=== PATIENT | female | born 1990 | race Caucasian/White ===

== ENCOUNTER → 2016-09-12 | Outpatient (CLI) | payer OTHER ==
[2016-09-12 14:12] LABS: BASO % 0.4 % (0.0-1.0); EOS # 0.1 K/mm3 (0.0-0.50); EOS % 1.6 % (0.0-3.0); LARGE UNSTAINED CELL # 0.1 K/mm3 (0.0-0.4); LARGE UNSTAINED CELL % 1.5 % (0.0-4.0); LYMPH # 1.7 K/mm3 (1.5-6.5); LYMPH % 19.9 % (24.0-44.0); MEAN CORPUSCULAR HEMOGLOBIN 27.2 pg (27.0-33.0); MEAN CORPUSCULAR HGB CONC 33.5 g/dl (32.0-36.5); MEAN CORPUSCULAR VOLUME 81.3 fl (80.0-96.0); MONO # 0.4 K/mm3 (0.0-0.8); MONO % 4.3 % (0.0-5.0); NEUTROPHILS # 6.1 K/mm3 (1.8-7.7); NEUTROPHILS % 72.3 % (36.0-66.0); PLATELET COUNT, AUTOMATED 276 k/mm3 (150-450); RED CELL DISTRIBUTION WIDTH 12.8 % (11.5-14.5); WHITE BLOOD COUNT 8.4 K/mm3 (4.0-10.0)
[2016-09-12 14:55] LABS: PERCENT SATURATION 21.6 % (13.2-37.4); TOTAL IRON BINDING CAPACITY 505 UG/DL (250-450)
== END ==
LOC: M LAB 13:36
PROVIDERS: ATTEND Nurse Practitioner Pediatrics
DX: K58.0 Irritable bowel syndrome with diarrhea (principal); F42.2 Mixed obsessional thoughts and acts; E56.9 Vitamin deficiency, unspecified; E03.8 Other specified hypothyroidism

== ENCOUNTER → 2017-09-29 | Outpatient (CLI) | payer OTHER ==
[2017-09-29 10:58] LABS: FREE T4 0.99 NG/DL (0.76-1.46)
== END ==
LOC: M LAB 09:15
DX: E06.3 Autoimmune thyroiditis (principal); E66.01 Morbid (severe) obesity due to excess calories
CPT/HCPCS: 84443

== ENCOUNTER 2018-09-20 12:31 | Emergency (ER) | payer OTHER ==
[~2018-09-20] VITALS: Ht 160 cm; Wt 113.6 kg
[2018-09-20] MEDS ORDERED: MUCI600T37 PO (13:26)
[2018-09-20] MEDS ORDERED: FLON1SPR NARES (13:26)
[2018-09-20] MEDS ORDERED: AUGM875T28 PO (13:26)
[2018-09-20] MEDS ORDERED: AUGMENTIN 875 MG TAB PO ONE (13:45)
[2018-09-20] MEDS ORDERED: NORCO, ANEXSIA 5/325MG TABLET (HYDROcodone/ACETAMINOPHEN) PO ONE (14:15)
[2018-09-20 14:32] VITALS: BP 168/94
== END 2018-09-20 14:41 | disposition home or self-care (01) ==
LOC: M ED 12:31
DX: H66.003 Acute suppurative otitis media without spontaneous rupture of ear drum, bilateral (principal); J31.0 Chronic rhinitis

== ENCOUNTER → 2018-11-02 | Outpatient (CLI) | payer OTHER ==
[~2018-11-02] MED LIST: AUGM875T28 PO; FLON1SPR NARES; MUCI600T37 PO
--- NOTE | 2018-11-03 02:46 | REP ---
Clinical: Right shoulder pain . Technique: Internal rotation, external rotation, and Y view. Findings: No acute fracture or dislocation. The acromioclavicular and glenohumeral joints are intact. No periarticular calcifications or degenerative changes are appreciated. Sub acromial space is normal. Surrounding soft tissues are unremarkable. Impression: Normal age-appropriate right shoulder radiographs. Electronically Signed by Bryson Humphries MD 11/03/2018 02:36 A
== END ==
LOC: M RAD 10:14
PROVIDERS: ATTEND Physician Assistant
DX: M25.511 Pain in right shoulder (principal)

== ENCOUNTER → 2019-01-27 | Outpatient (CLI) | payer OTHER, SELFPAY ==
--- NOTE | 2019-01-27 18:44 | REP ---
Clinical: Elevated liver function tests. Technique: Real time agrawal scale ultrasound examination using curved array transducer. Findings: Liver is enlarged and increased echotexture consistent with hepatomegaly and fatty infiltration. No focal hepatic lesion identified. Liver measures approximately 22.2 cm craniocaudal length. Gallbladder is normal and without gallstones, wall thickening, or pericholecystic fluid. No biliary ductal dilatation is appreciated and the common bile duct measures 4.1 mm diameter. Pancreas is incompletely evaluated due to interposed bowel gas but visualized portions appear normal. Right kidney is normal in reniform shape and echogenicity without hydronephrosis and measures 11.3 x 6.9 x 5.6 cm. No free fluid. Impression: 1. Hepatomegaly and hepatic steatosis. No focal hepatic lesion identified. Electronically Signed by Bryson Humphries MD 01/27/2019 06:36 P
== END ==
LOC: M RAD 08:51
PROVIDERS: ATTEND Physician Assistant
DX: R94.5 Abnormal results of liver function studies (principal); K75.81 Nonalcoholic steatohepatitis (NASH); R16.0 Hepatomegaly, not elsewhere classified

== ENCOUNTER → 2019-11-02 | Outpatient (REF) | payer OTHER, MEDICAID ==
[2019-11-02 13:45] LABS: BASO # 0.1 10^3/uL (0.0-0.2); BASO % 0.8 % (0.0-1.0); EOS # 0.2 10^3/uL (0.0-0.5); EOS % 1.8 % (0.0-3.0); HEMATOCRIT 39.1 % (36.0-47.0); HEMOGLOBIN 12.9 g/dl (12.0-15.5); LYMPH # 1.9 10^3/uL (1.5-5.0); LYMPH % 22.3 % (24.0-44.0); MEAN CORPUSCULAR HEMOGLOBIN 27.9 pg (27.0-33.0); MEAN CORPUSCULAR VOLUME 84.4 fl (80.0-96.0); MONO # 0.4 10^3/uL (0.0-0.8); MONO % 5.2 % (0.0-5.0); NEUTROPHILS # 5.8 10^3/uL (1.5-8.5); NEUTROPHILS % 69.2 % (36.0-66.0); PLATELET COUNT, AUTOMATED 333 10^3/uL (150-450); RED BLOOD COUNT 4.63 10^6/uL (4.00-5.40); WHITE BLOOD COUNT 8.4 10^3/uL (4.0-10.0)
[2019-11-02 13:48] LABS: ALT/SGPT 189 U/L (12-78); BILIRUBIN,TOTAL 0.3 MG/DL (0.2-1.0); BLOOD UREA NITROGEN 13 MG/DL (7-18); C REACTIVE PROTEIN QUANTITATIV 1.31 MG/DL (0.00-0.30); CALCIUM LEVEL 9.3 MG/DL (8.5-10.1); CARBON DIOXIDE LEVEL 25 MEQ/L (21-32); CHLORIDE LEVEL 103 MEQ/L (98-107); CREATININE FOR GFR 0.78 MG/DL (0.55-1.30); GLOMERULAR FILTRATION RATE > 60.0 (>60); GLUCOSE, FASTING 120 MG/DL (70-100); POTASSIUM SERUM 4.2 MEQ/L (3.5-5.1); RHEUMATOID FACTOR QUANT < 10.0 IU/ML (<15.0); SODIUM LEVEL 135 MEQ/L (136-145)
[2019-11-02 14:26] LABS: ERYTHROCYTE SEDIMENTATION RATE 46 mm/hr (0-20)
[2019-11-02 17:26] LABS: ALBUMIN 3.8 GM/DL (3.2-5.2); TOTAL PROTEIN 7.6 GM/DL (6.4-8.2)
== END ==
LOC: M SFHCRHEU 11:00
PROVIDERS: ATTEND Internal Medicine
DX: M25.50 Pain in unspecified joint (principal); R94.5 Abnormal results of liver function studies; E06.3 Autoimmune thyroiditis; E55.9 Vitamin D deficiency, unspecified; K90.0 Celiac disease

== ENCOUNTER → 2019-12-30 | Outpatient (CLI) | payer OTHER ==
--- NOTE | 2019-12-30 17:55 | REP ---
Clinical: Polyarthralgia . Technique: AP, lateral, bilateral oblique, and coned-down views. Findings: Alignment and lordosis is maintained. The vertebral bodies including transverse process and spinous processes are intact and normal. There is no evidence for acute fracture / compression injury or subluxation. No evidence for spondylolysis or spondylolisthesis. No significant degenerative change is noted. Impression: Normal lumbosacral spine radiograph series. Electronically Signed by Bryson Humphries MD 12/30/2019 05:47 P
--- NOTE | 2019-12-30 18:02 | REP ---
Clinical: Polyarthralgia. Technique: AP, AP angled, and bilateral oblique views of the sacroiliac joints. Findings: Sacroiliac joints appear symmetric and relatively normal. No effusion. No significant periarticular sclerosis. No subluxation. Impression: Symmetric and essentially age-appropriate sacroiliac joints. Electronically Signed by Bryson Humphries MD 12/30/2019 05:55 P
== END ==
LOC: M WUC 12:36
PROVIDERS: ATTEND Internal Medicine
DX: M25.50 Pain in unspecified joint (principal)

== ENCOUNTER → 2020-01-05 | Outpatient (CLI) | payer OTHER | LOC: M LAB 16:51 | PROVIDERS: ATTEND Dermatology | DX: Z79.899 Other long term (current) drug therapy (principal) ==

== ENCOUNTER → 2020-01-20 | Outpatient (REF) | payer OTHER, MEDICAID ==
[2020-01-21 11:33] LABS: HEPATITIS B SURFACE ANTIGEN NEGATIVE (NEGATIVE)
== END ==
LOC: M SFHCRHEU 10:29
PROVIDERS: ATTEND Internal Medicine
DX: R79.89 Other specified abnormal findings of blood chemistry (principal)

== ENCOUNTER → 2020-02-23 | Outpatient (CLI) | payer OTHER ==
[2020-02-23 13:20] LABS: BASO # 0.1 10^3/uL (0.0-0.2); BASO % 0.7 % (0.0-1.0); EOS # 0.1 10^3/uL (0.0-0.5); EOS % 1.1 % (0.0-3.0); HEMATOCRIT 40.1 % (36.0-47.0); HEMOGLOBIN 13.1 g/dl (12.0-15.5); LYMPH # 2.8 10^3/uL (1.5-5.0); LYMPH % 27.1 % (24.0-44.0); MEAN CORPUSCULAR HEMOGLOBIN 28.1 pg (27.0-33.0); MEAN CORPUSCULAR HGB CONC 32.7 g/dl (32.0-36.5); MEAN CORPUSCULAR VOLUME 85.9 fl (80.0-96.0); MONO # 0.6 10^3/uL (0.0-0.8); NEUTROPHILS # 6.6 10^3/uL (1.5-8.5); NEUTROPHILS % 64.1 % (36.0-66.0); PLATELET COUNT, AUTOMATED 308 10^3/uL (150-450); RED BLOOD COUNT 4.67 10^6/uL (4.00-5.40); WHITE BLOOD COUNT 10.3 10^3/uL (4.0-10.0)
[2020-02-23 13:31] LABS: INR 1.05; PROTHROMBIN TIME 13.4 SECONDS (11.8-14.0)
[2020-02-23 13:44] LABS: ALBUMIN 4.2 GM/DL (3.2-5.2); ALT/SGPT 142 U/L (12-78); BILIRUBIN,DIRECT 0.1 MG/DL (0.0-0.2); BILIRUBIN,TOTAL 0.4 MG/DL (0.2-1.0); IRON (FE) 90 UG/DL (50-170); PERCENT SATURATION 21.5 % (13.2-45.0); TOTAL IRON BINDING CAPACITY 418 UG/DL (250-450); TOTAL PROTEIN 7.9 GM/DL (6.4-8.2)
[2020-02-23 14:17] LABS: HEPATITIS B SURFACE ANTIGEN NEGATIVE (NEGATIVE)
[2020-02-23 14:31] LABS: HEPATITIS C VIRUS ABY INDEX 0.1 INDEX (<0.8)
[2020-02-23 14:32] LABS: HEPATITIS B CORE ANTIBODY IGM NEGATIVE (NEGATIVE)
[2020-02-23 14:34] LABS: HEPATITIS A ANTIBODY IGM NEGATIVE (NEGATIVE)
[2020-02-28 16:08] LABS: ANCA-ATYPICAL <1:20 titer (Neg:<1:20); ANTI-MITOCHONDRIAL ANTIBODY <20.0 Units (0.0-20.0); ANTINUCLEAR ANTIBODIES DIRECT Negative (Negative); CERULOPLASMIN 26.6 mg/dL (19.0-39.0); CYTOPLASMIC NEUTROP AB ANCA-C <1:20 titer (Neg:<1:20); LIVER-KIDNEY MICROSOMAL ABY <20.1 Units (0.0-20.0); PERINUCLEAR AB ANCA-P <1:20 titer (Neg:<1:20); TISSUE TRANSGLUTAMINASE IgA <2 U/mL (0-3)
== END ==
LOC: M LAB 12:14
PROVIDERS: ATTEND Internal Medicine Gastroenterology
DX: K62.5 Hemorrhage of anus and rectum (principal); R94.5 Abnormal results of liver function studies

== ENCOUNTER → 2020-06-01 | Outpatient (CLI) | payer OTHER ==
[~2020-06-01] MED LIST changes: +ATOR1TAB21 PO; +CETI10CH PO; +FLON1SPR; +FLUO10CA16 PO; +HUMI40KI SC; +LEVO88TA3 PO; +LISI10TA15 PO; +METF850T4 PO; +MOME0.1O EX; +OMEP1CAP73 PO; +SM M250T PO; +SPIR50TA4 PO; +TRAZ-252 PO; +VITA50005 PO
== END ==
LOC: M LABSMTC 11:28
PROVIDERS: ATTEND Anesthesiology
DX: Z01.812 Encounter for preprocedural laboratory examination (principal); Z20.828 Contact with and (suspected) exposure to other viral communicable diseases
CPT/HCPCS: C9803; U0003

== ENCOUNTER 2020-06-06 10:13 | Day surgery (SDC) | payer OTHER ==
[~2020-06-06] VITALS: Ht 160 cm; Wt 111.1 kg
[~2020-06-06 10:13] MED LIST changes: +NS 1,000 ML IV ONE
[2020-06-06] MEDS ORDERED: LIDOCAINE 2% 100MG/5ML SDV (FOR ANES.) As Ordered ONE (11:01)
[2020-06-06] MEDS ORDERED: propofoL 200 MG/20 ML VIAL As Ordered ONE ×2 (11:01→12:58)
[2020-06-06] MEDS ORDERED: fentaNYL 100 MCG/2 ML INJECTION (J3010) As Ordered ONE (11:04)
--- NOTE | 2020-06-06 12:31 | ROOR ---
Patient Name: Romina Zurita Procedure Date: 06/06/2020 12:11 PM Date of : 1990 Age: 30 Room: [facility] Gender: Female Note Status: Finalized Procedure: Upper GI endoscopy Indications: Heartburn, Endoscopy to assess diarrhea in patient suspected of having disease of the small-bowel Providers: Nic MURDOCK MD Referring MD: ABNER CELESTIN DO Requesting Provider: Medicines: Monitored Anesthesia Care Complications: No immediate complications. Procedure: Pre-Anesthesia Assessment: - The heart rate, respiratory rate, oxygen saturations, blood pressure, adequacy of pulmonary ventilation, and response to care were monitored throughout the procedure. The Endoscope was introduced through the mouth, and advanced to the third part of duodenum. The upper GI endoscopy was accomplished without difficulty. The patient tolerated the procedure well. Findings: The esophagus was normal. The stomach was normal. The examined duodenum was normal. Biopsies for histology were taken with a cold forceps in the second portion of the duodenum and in the third portion of the duodenum for evaluation of celiac disease. Impression: - Normal esophagus. - Normal stomach. - Normal examined duodenum. - Biopsies were taken with a cold forceps for evaluation of celiac disease. Recommendation: - Await pathology results. - Observe patient's clinical course. Nic Murdock MD Nic MURDOCK MD 06/06/2020 12:31:23 PM Electronically signed by Nic MURDOCK MD Number of Addenda: 0 Note Initiated On: 06/06/2020 12:11 PM Estimated Blood Loss: Estimated blood loss: none.
--- NOTE | 2020-06-06 13:18 | ROOR ---
Patient Name: Romina Zurita Procedure Date: 06/06/2020 12:12 PM Date of : 1990 Age: 30 Room: [facility] Gender: Female Note Status: Finalized Procedure: Colonoscopy Indications: Hematochezia Providers: Nic MURDOCK MD Referring MD: ABNER CELESTIN DO Requesting Provider: Medicines: Monitored Anesthesia Care Complications: No immediate complications. Procedure: Pre-Anesthesia Assessment: - The heart rate, respiratory rate, oxygen saturations, blood pressure, adequacy of pulmonary ventilation, and response to care were monitored throughout the procedure. The Colonoscope was introduced through the anus and advanced to 10 cm into the ileum. The colonoscopy was performed without difficulty. The patient tolerated the procedure well. The quality of the bowel preparation was good. Findings: The perianal and digital rectal examinations were normal. A 20 mm polypoid lesion was found in the mid ascending colon. The lesion was semi-pedunculated. The polyp was removed with a hot snare. Polyp resection was incomplete, and the resected tissue was partially retrieved. At the time of removal, adipose tissue becomes visible and this lesion likely represents an atypical appearing lipoma. I biopsied this to confirm-samples also placed in saline. To prevent bleeding after the polypectomy, three hemostatic clips were successfully placed (MR conditional). There was no bleeding at the end of the procedure. A 15 mm polyp was found in the mid sigmoid colon. The polyp was pedunculated. An endoloop was maneuvered over the polyp stalk and closed at the mucosal attachment prior to removal in order to prevent bleeding. The polyp was removed with a hot snare. Resection was complete, and retrieval was complete. A 4 mm polyp was found in the rectum. The polyp was sessile. The polyp was removed with a cold snare. Resection and retrieval were complete. Small Internal Hemorrhoids. The exam was otherwise without abnormality on direct and retroflexion views. Impression: - Benign polypoid lesion (likely a submucoasal lipoma) in the mid ascending colon. Tissue was partially removed and biopsied (saline). Clips (MR conditional) were placed. - One 15 mm polyp in the mid sigmoid colon, removed with a hot snare. Resected and retrieved. - One 4 mm polyp in the rectum, removed with a cold snare. Resected and retrieved. - Small Internal Hemorrhoids. - The examination was otherwise normal on direct and retroflexion views. Recommendation: - Telephone endoscopist for pathology results in 2 weeks. Nic Murdock MD Nic MURDOCK MD 06/06/2020 1:17:50 PM Electronically signed by Nic MURDOCK MD Number of Addenda: 0 Note Initiated On: 06/06/2020 12:12 PM Estimated Blood Loss: Estimated blood loss: none.
[2020-06-06 13:33] VITALS: BP 117/51
== END 2020-06-06 13:45 | disposition home or self-care (01) ==
LOC: M OPP 10:13
PROVIDERS: ATTEND Internal Medicine Gastroenterology
DX: K63.5 Polyp of colon (principal); K62.1 Rectal polyp; K92.1 Melena; R19.7 Diarrhea, unspecified; R12 Heartburn; E11.9 Type 2 diabetes mellitus without complications; F17.210 Nicotine dependence, cigarettes, uncomplicated; Z79.84 Long term (current) use of oral hypoglycemic drugs; Z79.899 Other long term (current) drug therapy; Z88.0 Allergy status to penicillin; Z88.5 Allergy status to narcotic agent; Z88.8 Allergy status to other drugs, medicaments and biological substances
CPT/HCPCS: 43239; 45385; 88305; J3010

== ENCOUNTER → 2020-07-10 | Outpatient (CLI) | payer OTHER ==
[~2020-07-10] MED LIST changes: +COSE1INJ SC; -NS 1,000 ML IV ONE; +OXYC1TAB23 PO
== END ==
LOC: M LABSMTC 10:33
PROVIDERS: ATTEND Anesthesiology
DX: Z20.828 Contact with and (suspected) exposure to other viral communicable diseases (principal)

== ENCOUNTER 2020-07-14 11:50 | Day surgery (SDC) | payer OTHER ==
[~2020-07-14] VITALS: Ht 160 cm; Wt 111.0 kg
[~2020-07-14 11:50] MED LIST changes: +LIDOCAINE 1% MDV 20ML VIAL SQ PRN; +LR 1,000 ML IV ONE; -OXYC1TAB23 PO
[2020-07-14 12:40] LABS: HEMATOCRIT 35.8 % (36.0-47.0); HEMOGLOBIN 11.9 g/dl (12.0-15.5); MEAN CORPUSCULAR HEMOGLOBIN 29.2 pg (27.0-33.0); MEAN CORPUSCULAR HGB CONC 33.2 g/dl (32.0-36.5); PLATELET COUNT, AUTOMATED 310 10^3/uL (150-450); RED BLOOD COUNT 4.07 10^6/uL (4.00-5.40); WHITE BLOOD COUNT 9.9 10^3/uL (4.0-10.0)
[2020-07-14] MEDS ORDERED: BUPIVACAINE HCL 0.25% 30ML VIAL As Ordered ONE (14:09)
[2020-07-14] MEDS ORDERED: LIDOCAINE 2% 100MG/5ML SDV (FOR ANES.) As Ordered ONE (14:37)
[2020-07-14] MEDS ORDERED: fentaNYL 100 MCG/2 ML INJECTION (J3010) As Ordered ONE ×2 (14:37→15:42)
[2020-07-14] MEDS ORDERED: KETOROLAC 60MG 2ML VIAL As Ordered ONE (14:37)
[2020-07-14] MEDS ORDERED: ROCURONIUM BROMIDE 50 MG/5 ML VIAL As Ordered ONE (14:37)
[2020-07-14] MEDS ORDERED: propofoL 200 MG/20 ML VIAL As Ordered ONE (14:37)
[2020-07-14] MEDS ORDERED: dexameTHASONE 4 MG/ML 1ML VIAL (J1100 PER 1MG) As Ordered ONE (14:37)
[2020-07-14] MEDS ORDERED: ONDANSETRON 4MG/2ML VIAL As Ordered ONE (14:37)
[2020-07-14] MEDS ORDERED: MIDAZOLAM INJ 2MG/2ML VIAL (J2250 PER 1MG) As Ordered ONE (14:37)
[2020-07-14] MEDS ORDERED: HYDROmorphone HCL 2 MG/ML 1ML VIAL (J1170) As Ordered ONE (14:38)
[2020-07-14] MEDS ORDERED: PHENYLephrine HCL 500 MCG/5 ML (100MCG/ML) SYRINGE (J2370) As Ordered ONE (14:45)
[2020-07-14] MEDS ORDERED: SUGAMMADEX SODIUM 500 MG/5 ML VIAL (BRIDION) As Ordered ONE (14:50)
[2020-07-14] MEDS: fentaNYL 100 MCG/2 ML INJECTION (J3010) IV PRN ×2 (15:45→15:50)
--- NOTE | 2020-07-14 15:56 | ROOPDOC ---
[facility] Report Of Operation Report of Operation DATE OF PROCEDURE: 07/14/20 PREPROCEDURE DIAGNOSES: endometriosis, pelvic pain. POSTPROCEDURE DIAGNOSES: same. PROCEDURE: Laparoscopy, lysis of adhesions. SURGEON: Kyaw Barber MD ANESTHESIA: GETA. ESTIMATED BLOOD LOSS: Approximately 20 mL. COMPLICATIONS: none. FINDINGS: Surgically absent uterus. Normal ovaries bilateral. Adhesions of small intestine to vaginal cuff. Scarring c/w prior h/o endometriosis. No active end ometriosis seen. Normal upper abdomen. PROCEDURE NOTE: The patient was taken to the operating room where General endotracheal anesthesia was induced. She was prepped and draped in a sterile fashion in the dorsal lithotomy position. A Swain catheter was placed. A sponge stick was placed in the vagina to use as a manipulator. A periumbilical incision was made with the scalpel. A Veress needle was inserted through this incision. An intra-abdominal location of the Veress needle was assessed with use of a sali ne filled syringe. A pneumoperitoneum was created. A 5 mm port was inserted using Visiport. Two 5 mm suprapubic ports were placed under direct visualization. 2 grasping instruments were used to survey the pelvis. Both ovaries were examined and noted to be normal in appearance. There were no adhesions around either ovary. There were significant adhesions of small intestine to the vaginal cuff. Adhesions were taken down combination of sharp and blunt dissection. Sharp dissection was performed using Endo Mackenzie. There was scarring in the pelvis near the vaginal cuff consistent with old endometriosis. However, no active endometriosis lesions were noted. Vaginal cuff was free of adhesions at the end of the procedure. All instruments were removed. Skin was closed with 4-0 Monocryl subcuticular sutures. Sponge, instrument and needle counts are correct. The patient was extubated and went to recovery room. KYAW BARBER MD Jul 14, 2020 15:56
[2020-07-14] MEDS ORDERED: ONDANSETRON 4MG/2ML VIAL IV PRN (16:00)
[2020-07-14] MEDS ORDERED: PERCOCET 5MG/325MG TAB PO PRN ×2 (16:00)
[2020-07-14] MEDS ORDERED: HYDROMORPHONE HCL 0.5 MG/ 0.5 ML SYRINGE (J1170 PER 1) IV PRN (16:00)
[2020-07-14] MEDS ORDERED: LR 1,000 ML IV SCH ×2 (16:00)
[2020-07-14] MEDS ORDERED: METOCLOPRAMIDE INJ 10MG/2ML VIAL (J2765 PER 1) IV PRN (16:00)
[2020-07-14 16:47] VITALS: BP 123/75
[2020-07-14] MEDS ORDERED: OXYC1TAB23 PO (17:57)
--- NOTE | 2020-07-15 15:13 | ECGEPIP ---
[facility] Test Date: 2020-07-14 Pat Name: TESS KATHLEEN Department: Room: - Gender: Female Grinding Operator: ION : 1990 Requested By: Javier Wayne Order Number: [id number] Reading MD: Ryan Werner Measurements Intervals [place] Rate: 89 P: 26 AK: 146 QRS: 38 QRSD: 85 T: 46 QT: 333 QTc: 407 Interpretive Statements SINUS RHYTHM No prior tracing in the system Electronically Signed on 07-15-2020 15:13:04 EST by Ryan Werner
== END 2020-07-14 17:25 | disposition home or self-care (01) ==
LOC: M SDC 11:50
PROVIDERS: ATTEND Specialist
DX: N80.3 Endometriosis of pelvic peritoneum (principal); K66.0 Peritoneal adhesions (postprocedural) (postinfection); E11.9 Type 2 diabetes mellitus without complications; E78.00 Pure hypercholesterolemia, unspecified; F31.9 Bipolar disorder, unspecified; K76.0 Fatty (change of) liver, not elsewhere classified; L40.52 Psoriatic arthritis mutilans; F41.9 Anxiety disorder, unspecified; F32.9 Major depressive disorder, single episode, unspecified; D64.9 Anemia, unspecified; I10 Essential (primary) hypertension; M12.9 Arthropathy, unspecified; G47.33 Obstructive sleep apnea (adult) (pediatric); K21.9 Gastro-esophageal reflux disease without esophagitis; E06.3 Autoimmune thyroiditis; K90.0 Celiac disease; R06.83 Snoring; F17.210 Nicotine dependence, cigarettes, uncomplicated; Z79.84 Long term (current) use of oral hypoglycemic drugs; Z79.890 Hormone replacement therapy; Z79.899 Other long term (current) drug therapy; Z88.1 Allergy status to other antibiotic agents; Z88.5 Allergy status to narcotic agent; Z88.8 Allergy status to other drugs, medicaments and biological substances; Z90.710 Acquired absence of both cervix and uterus; Z98.51 Tubal ligation status
CPT/HCPCS: 36415; 58660; 85027; 93005; J1100; J1170; J1885; J2250; J2370; J2405; J3010

== ENCOUNTER → 2020-09-05 | Outpatient (REF) | payer OTHER, MEDICAID ==
[~2020-09-05] MED LIST changes: -LIDOCAINE 1% MDV 20ML VIAL SQ PRN; -LR 1,000 ML IV ONE; +OXYC1TAB23 PO
[2020-09-05 11:36] LABS: BASO # 0.1 10^3/uL (0.0-0.2); BASO % 0.7 % (0.0-1.0); EOS # 0.1 10^3/uL (0.0-0.5); EOS % 1.2 % (0.0-3.0); HEMATOCRIT 35.4 % (36.0-47.0); HEMOGLOBIN 11.5 g/dl (12.0-15.5); LYMPH # 2.1 10^3/uL (1.5-5.0); LYMPH % 18.3 % (24.0-44.0); MEAN CORPUSCULAR HEMOGLOBIN 29.2 pg (27.0-33.0); MEAN CORPUSCULAR HGB CONC 32.5 g/dl (32.0-36.5); MEAN CORPUSCULAR VOLUME 89.8 fl (80.0-96.0); MONO # 0.7 10^3/uL (0.0-0.8); MONO % 6.4 % (0.0-5.0); NEUTROPHILS # 8.1 10^3/uL (1.5-8.5); NEUTROPHILS % 71.1 % (36.0-66.0); PLATELET COUNT, AUTOMATED 363 10^3/uL (150-450); RED BLOOD COUNT 3.94 10^6/uL (4.00-5.40); WHITE BLOOD COUNT 11.4 10^3/uL (4.0-10.0)
[2020-09-05 12:03] LABS: ERYTHROCYTE SEDIMENTATION RATE 54 mm/hr (0-20)
[2020-09-05 14:13] LABS: ALBUMIN 4.1 GM/DL (3.2-5.2); ALT/SGPT 87 U/L (12-78); BILIRUBIN,TOTAL 0.3 MG/DL (0.2-1.0); BLOOD UREA NITROGEN 23 MG/DL (7-18); C REACTIVE PROTEIN QUANTITATIV 0.97 MG/DL (0.00-0.30); CALCIUM LEVEL 10.1 MG/DL (8.5-10.1); CARBON DIOXIDE LEVEL 26 MEQ/L (21-32); CHLORIDE LEVEL 100 MEQ/L (98-107); GLOMERULAR FILTRATION RATE > 60.0 (>60); GLUCOSE, FASTING 132 MG/DL (70-100); POTASSIUM SERUM 4.7 MEQ/L (3.5-5.1); SODIUM LEVEL 133 MEQ/L (136-145); TOTAL PROTEIN 7.9 GM/DL (6.4-8.2)
== END ==
LOC: M SFHCRHEU 10:41
PROVIDERS: ATTEND Internal Medicine
DX: L40.50 Arthropathic psoriasis, unspecified (principal)

== ENCOUNTER → 2020-09-11 | Outpatient (CLI) | payer SELFPAY | LOC: M LABSMTC 13:54 | PROVIDERS: ATTEND Pediatrics | DX: Z20.822 Contact with and (suspected) exposure to COVID-19 (principal) ==

== ENCOUNTER → 2021-03-08 | Outpatient (REF) | payer OTHER, MEDICAID ==
[~2021-03-08] MED LIST changes: +ERGO500029 PO; -VITA50005 PO
[2021-03-08 16:58] LABS: BASO # 0.1 10^3/uL (0.0-0.2); BASO % 0.8 % (0.0-1.0); EOS # 0.2 10^3/uL (0.0-0.5); HEMATOCRIT 33.7 % (36.0-47.0); HEMOGLOBIN 11.1 g/dl (12.0-15.5); LYMPH # 1.6 10^3/uL (1.5-5.0); LYMPH % 16.2 % (24.0-44.0); MEAN CORPUSCULAR HEMOGLOBIN 29.7 pg (27.0-33.0); MEAN CORPUSCULAR HGB CONC 32.9 g/dl (32.0-36.5); MEAN CORPUSCULAR VOLUME 90.1 fl (80.0-96.0); MONO # 0.6 10^3/uL (0.0-0.8); MONO % 6.5 % (2.0-8.0); NEUTROPHILS # 7.1 10^3/uL (1.5-8.5); NEUTROPHILS % 73.6 % (36.0-66.0); PLATELET COUNT, AUTOMATED 293 10^3/uL (150-450); RED BLOOD COUNT 3.74 10^6/uL (4.00-5.40); WHITE BLOOD COUNT 9.6 10^3/uL (4.0-10.0)
[2021-03-08 17:24] LABS: ALBUMIN 4.1 GM/DL (3.2-5.2); ALT/SGPT 113 U/L (12-78); BILIRUBIN,DIRECT < 0.1 MG/DL (0.0-0.2); BILIRUBIN,TOTAL 0.3 MG/DL (0.2-1.0); BLOOD UREA NITROGEN 20 MG/DL (7-18); C REACTIVE PROTEIN QUANTITATIV 0.66 MG/DL (0.00-0.30); CALCIUM LEVEL 9.3 MG/DL (8.5-10.1); CARBON DIOXIDE LEVEL 28 MEQ/L (21-32); CHLORIDE LEVEL 101 MEQ/L (98-107); CREATININE FOR GFR 1.19 MG/DL (0.55-1.30); GLUCOSE, FASTING 89 MG/DL (70-100); POTASSIUM SERUM 4.4 MEQ/L (3.5-5.1); SODIUM LEVEL 136 MEQ/L (136-145); TOTAL PROTEIN 7.6 GM/DL (6.4-8.2)
[2021-03-08 17:25] LABS: ERYTHROCYTE SEDIMENTATION RATE 39 mm/hr (0-20)
== END ==
LOC: M SFHCRHEU 11:59
PROVIDERS: ATTEND Internal Medicine
DX: E55.9 Vitamin D deficiency, unspecified (principal); L40.50 Arthropathic psoriasis, unspecified

== ENCOUNTER → 2021-11-27 | Outpatient (CLI) | payer OTHER ==
[~2021-11-27] MED LIST changes: -FLUO10CA16 PO; +FLUO10CA18 PO; -LISI10TA15 PO; +LISI10TA24 PO
[2021-11-27 10:21] LABS: BASO # 0.1 10^3/uL (0.0-0.2); BASO % 0.7 % (0.0-1.0); EOS # 0.2 10^3/uL (0.0-0.5); EOS % 1.5 % (0.0-3.0); HEMOGLOBIN 10.3 g/dl (12.0-15.5); LYMPH # 2.3 10^3/uL (1.5-5.0); LYMPH % 22.1 % (24.0-44.0); MEAN CORPUSCULAR HEMOGLOBIN 28.4 pg (27.0-33.0); MEAN CORPUSCULAR HGB CONC 32.2 g/dl (32.0-36.5); MEAN CORPUSCULAR VOLUME 88.2 fl (80.0-96.0); MONO # 0.6 10^3/uL (0.0-0.8); MONO % 5.9 % (2.0-8.0); NEUTROPHILS % 68.6 % (36.0-66.0); PLATELET COUNT, AUTOMATED 353 10^3/uL (150-450); RED BLOOD COUNT 3.63 10^6/uL (4.00-5.40); WHITE BLOOD COUNT 10.2 10^3/uL (4.0-10.0)
[2021-11-27 10:55] LABS: ALBUMIN 3.9 GM/DL (3.2-5.2); BILIRUBIN,TOTAL 0.5 MG/DL (0.2-1.0); CALCIUM LEVEL 9.2 MG/DL (8.5-10.1); CHOLESTEROL RISK RATIO 4.027 (<5); CREATININE FOR GFR 1.75 MG/DL (0.55-1.30); FREE T4 1.25 NG/DL (0.76-1.46); GLOMERULAR FILTRATION RATE 35.6 (>60); PERCENT SATURATION 17.7 % (13.2-45.0); POTASSIUM SERUM 4.7 MEQ/L (3.5-5.1); THYROID STIMULATING HORMONE 2.2 uIU/ML (0.358-3.740); TOTAL PROTEIN 7.3 GM/DL (6.4-8.2)
[2021-11-27 10:57] LABS: TOTAL 25(OH) VITAMIN D 63.2 NG/ML (30.0-100.0)
[2021-11-27 10:58] LABS: FOLATE 13.1 NG/ML (>5.4)
== END ==
LOC: M RAD 08:08
PROVIDERS: ATTEND Registered Nurse
DX: Z01.810 Encounter for preprocedural cardiovascular examination (principal); E66.01 Morbid (severe) obesity due to excess calories

== ENCOUNTER → 2022-01-11 | Outpatient (CLI) | payer OTHER, MEDICAID ==
[2022-01-11 15:55] LABS: BASO # 0.1 10^3/uL (0.0-0.2); BASO % 0.6 % (0.0-1.0); EOS # 0.3 10^3/uL (0.0-0.5); EOS % 3.5 % (0.0-3.0); HEMATOCRIT 30.4 % (36.0-47.0); HEMOGLOBIN 10.3 g/dl (12.0-15.5); LYMPH # 3.3 10^3/uL (1.5-5.0); LYMPH % 39.3 % (24.0-44.0); MEAN CORPUSCULAR HGB CONC 33.9 g/dl (32.0-36.5); MEAN CORPUSCULAR VOLUME 85.6 fl (80.0-96.0); MONO # 0.6 10^3/uL (0.0-0.8); MONO % 6.7 % (2.0-8.0); NEUTROPHILS # 4.1 10^3/uL (1.5-8.5); NEUTROPHILS % 49.3 % (36.0-66.0); PLATELET COUNT, AUTOMATED 298 10^3/uL (150-450); RED BLOOD COUNT 3.55 10^6/uL (4.00-5.40); WHITE BLOOD COUNT 8.4 10^3/uL (4.0-10.0)
[2022-01-11 16:22] LABS: ALBUMIN 3.9 GM/DL (3.2-5.2); ALT/SGPT 40 U/L (12-78); BILIRUBIN,TOTAL 0.3 MG/DL (0.2-1.0); BLOOD UREA NITROGEN 20 MG/DL (7-18); CALCIUM LEVEL 9.8 MG/DL (8.5-10.1); CARBON DIOXIDE LEVEL 25 MEQ/L (21-32); CHLORIDE LEVEL 110 MEQ/L (98-107); CREATININE FOR GFR 1.02 MG/DL (0.55-1.30); GLOMERULAR FILTRATION RATE > 60.0 (>60); GLUCOSE, FASTING 88 MG/DL (70-100); SODIUM LEVEL 140 MEQ/L (136-145); TOTAL PROTEIN 7.5 GM/DL (6.4-8.2)
== END ==
LOC: M LAB 15:15
PROVIDERS: ATTEND Nurse Practitioner Family
DX: Z79.899 Other long term (current) drug therapy (principal)

== ENCOUNTER 2022-05-08 02:05 | Emergency (ER) | payer MEDICAID, OTHER ==
[~2022-05-08] VITALS: Ht 167.6 cm; Wt 111.1 kg
[~2022-05-08 02:05] MED LIST changes: -MOME0.1O EX; +MOME0.1O3 EX
[2022-05-08] MEDS ORDERED: NS 1,000 ML IV ONE (02:15)
[2022-05-08] MEDS ORDERED: ONDANSETRON 4MG 2ML VIAL IV ONE (02:15)
[2022-05-08 02:23] LABS: HEMATOCRIT 34.7 % (36.0-47.0); MEAN CORPUSCULAR HEMOGLOBIN 25.8 pg (27.0-33.0); MEAN CORPUSCULAR HGB CONC 31.7 g/dl (32.0-36.5); MEAN CORPUSCULAR VOLUME 81.3 fl (80.0-96.0); PLATELET COUNT, AUTOMATED 414 10^3/uL (150-450); RED BLOOD COUNT 4.27 10^6/uL (4.00-5.40); WHITE BLOOD COUNT 18.8 10^3/uL (4.0-10.0)
[2022-05-08 02:35] LABS: INR 0.94
[2022-05-08 02:36] LABS: PARTIAL THROMBOPLASTIN TIME 21.8 SECONDS (25.9-37.0)
[2022-05-08] MEDS: MORPHINE 4 MG/ML 1ML VIAL/SYRINGE IV PRN ×2 (02:37→02:51)
[2022-05-08] MEDS ORDERED: ISOVUE-370 76% 100ML VIAL As Ordered ONE (02:38)
[2022-05-08 02:39] LABS: ATYPICAL LYMPH 4 % (0-5); BASOPHILS 1 % (0-1); LYMPHOCYTES 43 % (16-44); MONOCYTES 3 % (0-5); NEUTROPHILS 49 % (28-66)
[2022-05-08 02:40] LABS: HYPOCHROMASIA 1+; PLATELET CLUMPS SMALL AMT; PLATELET ESTIMATE NORMAL (NORMAL)
[2022-05-08 02:50] LABS: ALT/SGPT 75 U/L (12-78); AMYLASE 97 U/L (25-115); BILIRUBIN,DIRECT < 0.1 MG/DL (0.0-0.2); BILIRUBIN,TOTAL 0.2 MG/DL (0.2-1.0); BLOOD UREA NITROGEN 19 MG/DL (7-18); CALCIUM LEVEL 9.7 MG/DL (8.5-10.1); CARBON DIOXIDE LEVEL 17 MEQ/L (21-32); CHLORIDE LEVEL 107 MEQ/L (98-107); CK-MB VALUE MASS 3.2 NG/ML (<3.6); CREATININE FOR GFR 1.25 MG/DL (0.55-1.30); GLOMERULAR FILTRATION RATE 52.2 (>60); GLUCOSE, FASTING 131 MG/DL (70-100); LIPASE 1098 U/L (73-393); MB/CK RELATIVE INDEX 1.04 (< OR =4); POTASSIUM SERUM 3.9 MEQ/L (3.5-5.1); SODIUM LEVEL 140 MEQ/L (136-145); TOTAL PROTEIN 7.9 GM/DL (6.4-8.2)
[2022-05-08 02:56] LABS: ABG BASE EXCESS -9.2 (-2.0-2.0); ABG HCO3 16.2 MEQ/L (22.0-26.0); ABG O2 SATURATION 94.3 % (95.0-99.0); ABG PARTIAL PRESSURE CO2 33.3 mmHg (35.0-45.0); ABG PARTIAL PRESSURE O2 81.6 mmHg (75.0-100.0); ABG TOTAL CO2 17.2 MEQ/L (22.0-29.0); ABG pH (ARTERIAL) 7.304 UNITS (7.350-7.450)
[2022-05-08] MEDS ORDERED: BOOSTRIX/ADACEL VACCINE (DIPHTH/PERTUSS/ACELL/TETANUS) 0.5ML SYR IM ONE (03:00)
[2022-05-08] MEDS ORDERED: ceFAZolin SOD 2 GM in IV 1 EA IV ONE (03:00)
[2022-05-08 03:16] LABS: APPEARANCE, URINE MANUAL CLEAR (CLEAR); COLOR, URINE MANUAL YELLOW (YELLOW)
[2022-05-08 03:18] LABS: BILIRUBIN, URINE MANUAL NEGATIVE (NEGATIVE); BLOOD URINE MANUAL POSITIVE (NEGATIVE); GLUCOSE, URINE (UA) MANUAL NEGATIVE (NEGATIVE); KETONE, URINE MANUAL NEGATIVE (NEGATIVE); LEUKOCYTE ESTERASE, URINE MAN NEGATIVE (NEGATIVE); NITRITE, URINE MANUAL NEGATIVE (NEGATIVE); PROTEIN, URINE MANUAL 2+ mg/dL (NEGATIVE); UROBILINOGEN, URINE MANUAL NORMAL (NORMAL)
[2022-05-08 03:27] LABS: SQUAMOUS EPITHELIAL CELL URINE SMALL AMOUNT /hpf (SMALL AMT)
[2022-05-08 03:28] LABS: BACTERIA, URINE NONE SEEN; HYALINE CAST, URINE 0-1 /lpf (0-1)
[2022-05-08 03:29] LABS: AMORPHOUS SEDIMENT, URINE SMALL AMOUNT (NEGATIVE); MUCUS, URINE SMALL AMOUNT (NEGATIVE)
[2022-05-08 03:42] LABS: AMPHETAMINES LEVEL URINE NEGATIVE (NEGATIVE); BARBITURATES URINE NEGATIVE (NEGATIVE); BENZODIAZEPINES URINE NEGATIVE (NEGATIVE); CANNABINOIDS URINE POSITIVE (NEGATIVE); COCAINE METABOLITE URINE NEGATIVE (NEGATIVE); METHADONE URINE NEGATIVE (NEGATIVE); OPIATES URINE POSITIVE (NEGATIVE); PHENCYCLIDINE URINE NEGATIVE (NEGATIVE)
[2022-05-08 04:10] LABS: RSV AMPLIFICATION NEGATIVE (NEGATIVE)
[2022-05-08 06:21] VITALS: BP 127/72
== END 2022-05-08 06:22 | disposition short-term general hospital (02) ==
LOC: M ED 02:05
DX: S22.42XA Multiple fractures of ribs, left side, initial encounter for closed fracture (principal); S02.82XA Fracture of other specified skull and facial bones, left side, initial encounter for closed fracture; S01.01XA Laceration without foreign body of scalp, initial encounter; S80.10XA Contusion of unspecified lower leg, initial encounter; F10.929 Alcohol use, unspecified with intoxication, unspecified; J93.11 Primary spontaneous pneumothorax; F31.9 Bipolar disorder, unspecified; K21.9 Gastro-esophageal reflux disease without esophagitis; E11.9 Type 2 diabetes mellitus without complications; M54.50 Low back pain, unspecified; Z88.1 Allergy status to other antibiotic agents; Z88.5 Allergy status to narcotic agent; Z79.811 Long term (current) use of aromatase inhibitors; Z79.4 Long term (current) use of insulin; Z79.899 Other long term (current) drug therapy
CPT/HCPCS: 51702; 70450; 70486; 71045; 71260; 72125; 74177; 80047; 80048; 80076; 80307; 81000; 82077; 82150; 82550; 82553; 82803; 83605; 83690; 84702; 85025; 85610; 85730; 86850; 86900; 86901; 87631; 90471; 90715; 93005; 93041; 94760; 96365; 96375; 99291; 99292; J0690; J2270; J2405; Q9967

== ENCOUNTER → 2022-05-13 | Outpatient (CLI) | payer OTHER | LOC: M WUC 11:31 | PROVIDERS: ATTEND Nurse Practitioner Family | DX: S22.42XA Multiple fractures of ribs, left side, initial encounter for closed fracture (principal); X58.XXXA Exposure to other specified factors, initial encounter; R91.8 Other nonspecific abnormal finding of lung field; J91.8 Pleural effusion in other conditions classified elsewhere ==

== ENCOUNTER → 2022-05-29 | Outpatient (CLI) | payer OTHER | LOC: M RAD 10:02 | PROVIDERS: ATTEND Nurse Practitioner Family | DX: S02.91XA Unspecified fracture of skull, initial encounter for closed fracture (principal); X58.XXXA Exposure to other specified factors, initial encounter; Y92.9 Unspecified place or not applicable ==

== ENCOUNTER → 2022-07-30 | Outpatient (REF) | payer OTHER | LOC: M LAB REF 12:44 | PROVIDERS: ATTEND Family Medicine Addiction Medicine | DX: R30.0 Dysuria (principal) ==

== ENCOUNTER → 2022-08-01 | Outpatient (CLI) | payer OTHER | LOC: M LABSMTC 10:57 | PROVIDERS: ATTEND Surgery | DX: E66.01 Morbid (severe) obesity due to excess calories (principal) ==

== ENCOUNTER 2022-08-13 12:51 | Emergency (ER) | payer MEDICAID, OTHER ==
[~2022-08-13] VITALS: Ht 160 cm; Wt 103.3 kg
[2022-08-13] MEDS ORDERED: AMLO1TAB24 (13:08)
[2022-08-13] MEDS ORDERED: ONDA4TAB6 PO (15:32)
[2022-08-13 15:42] VITALS: BP 133/87
== END 2022-08-13 15:45 | disposition home or self-care (01) ==
LOC: M ED 12:51
DX: B34.8 Other viral infections of unspecified site (principal); I10 Essential (primary) hypertension; E11.9 Type 2 diabetes mellitus without complications; E03.9 Hypothyroidism, unspecified; K21.9 Gastro-esophageal reflux disease without esophagitis; G47.33 Obstructive sleep apnea (adult) (pediatric); Z87.891 Personal history of nicotine dependence; Z98.84 Bariatric surgery status; Z88.1 Allergy status to other antibiotic agents; Z88.5 Allergy status to narcotic agent; Z79.4 Long term (current) use of insulin; Z79.899 Other long term (current) drug therapy

== ENCOUNTER → 2022-09-02 | Outpatient (REF) | payer OTHER, MEDICAID ==
[~2022-09-02] MED LIST changes: +AMLO1TAB24; +ONDA4TAB6 PO
[2022-09-02 13:57] LABS: HEMOGLOBIN A1c 5.3 % (4.0-6.0)
[2022-09-02 14:32] LABS: THYROID STIMULATING HORMONE 3.146 uIU/ML (0.55-4.78)
[2022-09-02 14:33] LABS: ALBUMIN 3.9 G/DL (3.2-5.2); ALKALINE PHOSPHATASE 123 U/L (46-116); ALT/SGPT 52 U/L (7.0-40); AST/SGOT 30 U/L (<34); BILIRUBIN,TOTAL 0.4 MG/DL (0.3-1.2); BLOOD UREA NITROGEN 13 MG/DL (9-23); CALCIUM LEVEL 9.7 MG/DL (8.5-10.1); CARBON DIOXIDE LEVEL 25 MMOL/L (20-31); CHLORIDE LEVEL 108 MMOL/L (98-107); CHOLESTEROL LEVEL 138 MG/DL (<200); CHOLESTEROL RISK RATIO 3.45 (<5); CREATININE FOR GFR 0.88 MG/DL (0.55-1.30); GLOMERULAR FILTRATION RATE > 60.0 (>60); GLUCOSE, FASTING 85 MG/DL (60-100); LDL CHOLESTEROL 67.2 MG/DL (<100); NON-HDL-C 98 MG/DL; SODIUM LEVEL 142 MMOL/L (136-145); TRIGLYCERIDES LEVEL 154 MG/DL (<150)
== END ==
LOC: M LAB REF 11:55
PROVIDERS: ATTEND Family Medicine Addiction Medicine
DX: E11.9 Type 2 diabetes mellitus without complications (principal)

== ENCOUNTER → 2022-10-15 | Outpatient (CLI) | payer OTHER, MEDICAID ==
[2022-10-15 12:09] LABS: BASO # 0.1 10^3/uL (0.0-0.2); BASO % 0.5 % (0.0-1.0); EOS # 0.2 10^3/uL (0.0-0.5); EOS % 1.6 % (0.0-3.0); HEMATOCRIT 35.6 % (36.0-47.0); HEMOGLOBIN 11.2 g/dl (12.0-15.5); LYMPH # 2.2 10^3/uL (1.5-5.0); LYMPH % 23.7 % (24.0-44.0); MEAN CORPUSCULAR HEMOGLOBIN 25.6 pg (27.0-33.0); MEAN CORPUSCULAR HGB CONC 31.5 g/dl (32.0-36.5); MEAN CORPUSCULAR VOLUME 81.3 fl (80.0-96.0); MONO # 0.6 10^3/uL (0.0-0.8); MONO % 6.4 % (2.0-8.0); NEUTROPHILS # 6.2 10^3/uL (1.5-8.5); NEUTROPHILS % 67.6 % (36.0-66.0); PLATELET COUNT, AUTOMATED 286 10^3/uL (150-450); RED BLOOD COUNT 4.38 10^6/uL (4.00-5.40); WHITE BLOOD COUNT 9.1 10^3/uL (4.0-10.0)
[2022-10-15 12:54] LABS: HEMOGLOBIN A1c 5.3 % (4.0-6.0)
[2022-10-15 13:22] LABS: IRON (FE) 31 UG/DL (50-170)
[2022-10-15 13:23] LABS: PERCENT SATURATION 7.9 % (13.2-45.0); TOTAL IRON BINDING CAPACITY 392 UG/DL (250-425)
[2022-10-15 15:05] LABS: ALBUMIN 3.6 G/DL (3.2-5.2); ALKALINE PHOSPHATASE 139 U/L (46-116); ALT/SGPT 60 U/L (7.0-40); AST/SGOT 40 U/L (<34); BILIRUBIN,TOTAL 0.3 MG/DL (0.3-1.2); BLOOD UREA NITROGEN 13 MG/DL (9-23); CALCIUM LEVEL 9.5 MG/DL (8.5-10.1); CARBON DIOXIDE LEVEL 24 MMOL/L (20-31); CHLORIDE LEVEL 107 MMOL/L (98-107); FERRITIN 3.3 NG/ML (7.3-270.7); GLUCOSE, FASTING 94 MG/DL (60-100); POTASSIUM SERUM 4.2 MMOL/L (3.5-5.1); SODIUM LEVEL 140 MMOL/L (136-145); THYROID STIMULATING HORMONE 2.532 uIU/ML (0.55-4.78); TOTAL 25(OH) VITAMIN D 45.2 NG/ML (20.0-100.0); TOTAL PROTEIN 6.8 G/DL (5.7-8.2); VITAMIN B12 LEVEL 1090 PG/ML (211-911)
[2022-10-15 20:38] LABS: CREATININE FOR GFR 0.76 MG/DL (0.55-1.30); GLOMERULAR FILTRATION RATE > 60.0 (>60)
== END ==
LOC: M LAB 11:16
PROVIDERS: ATTEND Registered Nurse
DX: E66.01 Morbid (severe) obesity due to excess calories (principal)

== ENCOUNTER → 2022-11-11 | Outpatient (CLI) | payer MEDICAID | LOC: M OUTALCOH 08:37 | PROVIDERS: ATTEND Psychiatry & Neurology Psychiatry | DX: F10.10 Alcohol abuse, uncomplicated (principal) ==

== ENCOUNTER 2022-12-19 14:42 | Outpatient (RCR) | payer MEDICAID | END 2022-12-22 | LOC: M OUTALCOH 14:42 | PROVIDERS: ATTEND Psychiatry & Neurology Psychiatry | DX: F10.20 Alcohol dependence, uncomplicated (principal); F12.10 Cannabis abuse, uncomplicated; Z72.0 Tobacco use ==

== ENCOUNTER 2023-01-21 16:00 | Outpatient (RCR) | payer MEDICAID | END 2023-01-22 | LOC: M OUTALCOH 16:00 | PROVIDERS: ATTEND Psychiatry & Neurology Psychiatry | DX: F10.20 Alcohol dependence, uncomplicated (principal); F12.10 Cannabis abuse, uncomplicated; Z72.0 Tobacco use ==

== ENCOUNTER → 2023-01-29 | Outpatient (REF) | payer MEDICAID ==
[2023-01-29 18:53] LABS: CREATININE,RANDOM URINE 460.6 MG/DL; TOTAL PROTEIN,RANDOM URINE 188.5 MG/DL (0.0-14.0)
== END ==
LOC: M LAB REF 17:18
PROVIDERS: ATTEND Internal Medicine Nephrology
DX: R80.9 Proteinuria, unspecified (principal)

== ENCOUNTER → 2023-02-12 | Outpatient (REF) | payer MEDICAID, OTHER | LOC: M SFHCWAGY 17:04 | PROVIDERS: ATTEND Nurse Practitioner Family | DX: Z11.3 Encounter for screening for infections with a predominantly sexual mode of transmission (principal) ==

== ENCOUNTER 2023-02-14 13:00 | Outpatient (RCR) | payer MEDICAID | END 2023-02-21 | LOC: M OUTALCOH 13:00 | PROVIDERS: ATTEND Psychiatry & Neurology Psychiatry | DX: F10.20 Alcohol dependence, uncomplicated (principal); F12.10 Cannabis abuse, uncomplicated; Z72.0 Tobacco use ==

== ENCOUNTER → 2023-07-21 | Outpatient (REF) | payer MEDICAID, OTHER ==
[2023-07-21 12:30] LABS: BASO # 0.1 10^3/uL (0.0-0.2); BASO % 0.8 % (0.0-1.0); EOS # 0.2 10^3/uL (0.0-0.5); EOS % 2.6 % (0.0-3.0); HEMATOCRIT 38.5 % (36.0-47.0); HEMOGLOBIN 12.8 g/dl (12.0-15.5); LYMPH # 2.3 10^3/uL (1.5-5.0); LYMPH % 30.6 % (24.0-44.0); MEAN CORPUSCULAR HEMOGLOBIN 28.2 pg (27.0-33.0); MEAN CORPUSCULAR HGB CONC 33.2 g/dl (32.0-36.5); MEAN CORPUSCULAR VOLUME 84.8 fl (80.0-96.0); MONO # 0.6 10^3/uL (0.0-0.8); MONO % 8.7 % (2.0-8.0); NEUTROPHILS # 4.2 10^3/uL (1.5-8.5); PLATELET COUNT, AUTOMATED 318 10^3/uL (150-450); RED BLOOD COUNT 4.54 10^6/uL (4.00-5.40); WHITE BLOOD COUNT 7.4 10^3/uL (4.0-10.0)
[2023-07-21 12:43] LABS: HEMOGLOBIN A1c 5.1 % (4.0-6.0)
[2023-07-21 12:52] LABS: IRON (FE) 187 UG/DL (50-170)
[2023-07-21 12:53] LABS: ALKALINE PHOSPHATASE 110 U/L (46-116); ALT/SGPT 31 U/L (7.0-40); AST/SGOT 25 U/L (<34); BILIRUBIN,TOTAL 0.7 MG/DL (0.3-1.2); BLOOD UREA NITROGEN 13 MG/DL (9-23); CALCIUM LEVEL 9.4 MG/DL (8.5-10.1); CARBON DIOXIDE LEVEL 22 MMOL/L (20-31); CHLORIDE LEVEL 106 MMOL/L (98-107); CHOLESTEROL LEVEL 209 MG/DL (<200); CHOLESTEROL RISK RATIO 2.76 (<5); CREATININE FOR GFR 0.76 MG/DL (0.55-1.30); GLOMERULAR FILTRATION RATE > 60.0 (>60); GLUCOSE, FASTING 106 MG/DL (60-100); HDL CHOLESTEROL 75.7 MG/DL (>40); LDL CHOLESTEROL 84.9 MG/DL (<100); NON-HDL-C 133.3 MG/DL; SODIUM LEVEL 140 MMOL/L (136-145); TOTAL PROTEIN 7.5 G/DL (5.7-8.2); TRIGLYCERIDES LEVEL 242 MG/DL (<150)
[2023-07-21 13:33] LABS: CREATININE, URINE 172.3 MG/DL; MAU/CREAT RATIO 49.9 MCG/MG (0.0-30.0)
== END ==
LOC: M LAB REF 11:50
PROVIDERS: ATTEND Family Medicine Addiction Medicine
DX: E11.69 Type 2 diabetes mellitus with other specified complication (principal); D50.9 Iron deficiency anemia, unspecified

== ENCOUNTER 2023-09-21 12:19 | Emergency (ER) | payer MEDICAID, OTHER ==
[~2023-09-21] VITALS: Ht 160 cm; Wt 71.4 kg
[2023-09-21] MEDS ORDERED: TALT80IN5 (12:33)
[2023-09-21] MEDS ORDERED: KETOROLAC 60MG 2ML VIAL IM ONE (13:10)
[2023-09-21] MEDS ORDERED: LIDOCAINE 1% MDV 20ML VIAL SC ONE (13:15)
[2023-09-21] MEDS ORDERED: CEPH500C PO (14:38)
[2023-09-21] MEDS ORDERED: CEPHALEXIN 500 MG CAP PO ONE (14:40)
[2023-09-21 14:48] VITALS: BP 142/99; TEMP 97.2; O2SAT 99
== END 2023-09-21 14:50 | disposition home or self-care (01) ==
LOC: M ED 12:19
DX: S62.232A Other displaced fracture of base of first metacarpal bone, left hand, initial encounter for closed fracture (principal); S63.115A Dislocation of metacarpophalangeal joint of left thumb, initial encounter; S61.307A Unspecified open wound of left little finger with damage to nail, initial encounter; W01.0XXA Fall on same level from slipping, tripping and stumbling without subsequent striking against object, initial encounter; I10 Essential (primary) hypertension; Y92.410 Unspecified street and highway as the place of occurrence of the external cause; Y93.89 Activity, other specified; Y99.9 Unspecified external cause status; Z98.84 Bariatric surgery status; Z79.02 Long term (current) use of antithrombotics/antiplatelets; Z79.83 Long term (current) use of bisphosphonates; Z79.899 Other long term (current) drug therapy; Z88.1 Allergy status to other antibiotic agents; Z88.5 Allergy status to narcotic agent
CPT/HCPCS: 73120; 73130; 96372; 99283; J1885

== ENCOUNTER → 2023-10-02 | Outpatient (CLI) | payer OTHER, MEDICAID ==
[~2023-10-02] MED LIST changes: +CEPH500C PO; +TALT80IN5
== END ==
LOC: M SOG 07:51
PROVIDERS: ATTEND Physician Assistant
DX: S63.045A Dislocation of carpometacarpal joint of left thumb, initial encounter (principal); X58.XXXA Exposure to other specified factors, initial encounter; Y92.9 Unspecified place or not applicable

== ENCOUNTER → 2023-10-16 | Outpatient (CLI) | payer OTHER, MEDICAID | LOC: M SOG 08:24 | PROVIDERS: ATTEND Physician Assistant | DX: S62.202D Unspecified fracture of first metacarpal bone, left hand, subsequent encounter for fracture with routine healing (principal); Z53.9 Procedure and treatment not carried out, unspecified reason ==

== ENCOUNTER → 2023-10-23 | Outpatient (CLI) | payer OTHER, MEDICAID | LOC: M SOG 07:53 | PROVIDERS: ATTEND Physician Assistant | DX: S62.202D Unspecified fracture of first metacarpal bone, left hand, subsequent encounter for fracture with routine healing (principal) ==

== ENCOUNTER → 2023-11-06 | Outpatient (CLI) | payer MEDICAID | LOC: M OUTALCOH 08:33 | PROVIDERS: ATTEND Psychiatry & Neurology Psychiatry | DX: F10.10 Alcohol abuse, uncomplicated (principal); F17.200 Nicotine dependence, unspecified, uncomplicated ==

== ENCOUNTER 2023-11-20 09:57 | Outpatient (RCR) | payer MEDICAID | END 2023-11-23 | LOC: M OUTALCOH 09:57 | PROVIDERS: ATTEND Psychiatry & Neurology Psychiatry | DX: F10.10 Alcohol abuse, uncomplicated (principal); F17.200 Nicotine dependence, unspecified, uncomplicated ==

== ENCOUNTER 2023-12-11 07:51 | Day surgery (SDC) | payer OTHER ==
[~2023-12-11] VITALS: Ht 161.9 cm; Wt 69.4 kg
[~2023-12-11 07:51] MED LIST changes: -AMLO1TAB24; +AMLO1TAB24 PO; +ARIP1TAB4 PO; +ATOR40TA75 PO; +B-12100010 PO; +BIOT5TAB3 PO; +CETI-24 PO; +FLUO20CA22 PO; +LIDOCAINE 2% 100MG/5ML SDV (FOR ANES.) As Ordered ONE; +OMEP-173 PO; +RA M500C PO; +THERTAB52 PO; +propofoL 200 MG/20 ML VIAL As Ordered ONE
[2023-12-11] MEDS: NS 1,000 ML IV ONE (08:03)
[2023-12-11] MEDS ORDERED: fentaNYL 100 MCG/2 ML INJECTION As Ordered ONE (08:14)
[2023-12-11] MEDS ORDERED: GLYCOPYRROLATE INJ 0.2 MG/ML 2 ML VIAL As Ordered ONE (09:45)
[2023-12-11 10:29] VITALS: BP 113/58; TEMP 96.8; O2SAT 100
== END 2023-12-11 10:33 | disposition home or self-care (01) ==
LOC: M OPP 07:51
PROVIDERS: ATTEND Internal Medicine Gastroenterology
DX: Z12.11 Encounter for screening for malignant neoplasm of colon (principal); Z86.010 Personal history of colon polyps; K63.5 Polyp of colon; K52.89 Other specified noninfective gastroenteritis and colitis; K25.9 Gastric ulcer, unspecified as acute or chronic, without hemorrhage or perforation; R10.84 Generalized abdominal pain; Z98.0 Intestinal bypass and anastomosis status; E11.9 Type 2 diabetes mellitus without complications; G47.30 Sleep apnea, unspecified; Z99.89 Dependence on other enabling machines and devices; E03.9 Hypothyroidism, unspecified; I10 Essential (primary) hypertension; F17.200 Nicotine dependence, unspecified, uncomplicated; Z79.02 Long term (current) use of antithrombotics/antiplatelets; Z79.84 Long term (current) use of oral hypoglycemic drugs; Z79.890 Hormone replacement therapy; Z79.899 Other long term (current) drug therapy; Z88.1 Allergy status to other antibiotic agents; Z88.5 Allergy status to narcotic agent; Z88.6 Allergy status to analgesic agent
CPT/HCPCS: 43239; 45385; 88305; J3010

== ENCOUNTER 2023-12-11 16:00 | Outpatient (RCR) | payer MEDICAID ==
[~2023-12-11 16:00] MED LIST changes: -LIDOCAINE 2% 100MG/5ML SDV (FOR ANES.) As Ordered ONE; -propofoL 200 MG/20 ML VIAL As Ordered ONE
== END 2023-12-23 ==
LOC: M OUTALCOH 16:00
PROVIDERS: ATTEND Psychiatry & Neurology Psychiatry
DX: F10.10 Alcohol abuse, uncomplicated (principal); F17.200 Nicotine dependence, unspecified, uncomplicated

== ENCOUNTER → 2023-12-31 | Outpatient (REF) | payer OTHER, MEDICAID ==
[~2023-12-31] MED LIST changes: +FLUO-290 PO; -FLUO10CA18 PO
[2023-12-31 15:55] LABS: ALBUMIN 3.5 G/DL (3.2-5.2); ALKALINE PHOSPHATASE 83 U/L (46-116); ALT/SGPT 42 U/L (7.0-40); AST/SGOT 27 U/L (<34); BILIRUBIN,TOTAL 0.3 MG/DL (0.3-1.2); BLOOD UREA NITROGEN 15 MG/DL (9-23); CALCIUM LEVEL 9.4 MG/DL (8.5-10.1); CARBON DIOXIDE LEVEL 23 MMOL/L (20-31); CHLORIDE LEVEL 110 MMOL/L (98-107); CHOLESTEROL LEVEL 188 MG/DL (<200); CHOLESTEROL RISK RATIO 2.48 (<5); CREATININE FOR GFR 0.85 MG/DL (0.55-1.30); GLOMERULAR FILTRATION RATE > 60.0 (>60); GLUCOSE, FASTING 73 MG/DL (60-100); HDL CHOLESTEROL 75.8 MG/DL (>40); LDL CHOLESTEROL 93.6 MG/DL (<100); NON-HDL-C 112.2 MG/DL; POTASSIUM SERUM 4.9 MMOL/L (3.5-5.1); SODIUM LEVEL 140 MMOL/L (136-145); TOTAL PROTEIN 6.9 G/DL (5.7-8.2); TRIGLYCERIDES LEVEL 93 MG/DL (<150)
[2023-12-31 15:57] LABS: THYROID STIMULATING HORMONE 2.243 uIU/ML (0.55-4.78)
[2023-12-31 16:04] LABS: HEMOGLOBIN A1c 5.3 % (4.0-6.0)
== END ==
LOC: M LAB REF 13:02
PROVIDERS: ATTEND Family Medicine Addiction Medicine
DX: E11.9 Type 2 diabetes mellitus without complications (principal)

== ENCOUNTER → 2024-01-23 | Outpatient (RCR) | payer MEDICAID | LOC: M OUTALCOH 01-01 14:54 | PROVIDERS: ATTEND Psychiatry & Neurology Psychiatry | DX: F10.10 Alcohol abuse, uncomplicated (principal); F17.200 Nicotine dependence, unspecified, uncomplicated ==

== ENCOUNTER 2024-02-20 09:56 | Outpatient (RCR) | payer MEDICAID ==
[~2024-02-20 09:56] MED LIST changes: +FLUO-365 PO; -FLUO20CA22 PO; +ONDA-282 PO; -ONDA4TAB6 PO
== END 2024-02-22 ==
LOC: M OUTALCOH 09:56
PROVIDERS: ATTEND Psychiatry & Neurology Psychiatry
DX: F10.10 Alcohol abuse, uncomplicated (principal); F17.200 Nicotine dependence, unspecified, uncomplicated

== ENCOUNTER 2024-05-04 10:38 | Inpatient (IN) | payer MEDICAID, OTHER ==
[~2024-05-04] VITALS: Ht 160 cm; Wt 72.1 kg
[~2024-05-04 10:38] MED LIST changes: -TALT80IN5; +TALT80IN5 SQ
[2024-05-04 12:21] LABS: HEMATOCRIT 34.1 % (36.0-47.0); MEAN CORPUSCULAR HEMOGLOBIN 27.7 pg (27.0-33.0); MEAN CORPUSCULAR HGB CONC 32.3 g/dl (32.0-36.5); MEAN CORPUSCULAR VOLUME 85.9 fl (80.0-96.0); PLATELET COUNT, AUTOMATED 261 10^3/uL (150-450); RED BLOOD COUNT 3.97 10^6/uL (4.00-5.40); WHITE BLOOD COUNT 6.3 10^3/uL (4.0-10.0)
[2024-05-04 12:45] LABS: ETHYL ALCOHOL (ETHANOL) 0.004 % (0.000-0.010)
[2024-05-04 12:47] LABS: ALBUMIN 3.3 G/DL (3.2-5.2); ALKALINE PHOSPHATASE 86 U/L (46-116); ALT/SGPT 27 U/L (7.0-40); AST/SGOT 33 U/L (<34); BILIRUBIN,DIRECT < 0.1 MG/DL (<0.4); BILIRUBIN,TOTAL 0.2 MG/DL (0.3-1.2); BLOOD UREA NITROGEN 9 MG/DL (9-23); CALCIUM LEVEL 9.2 MG/DL (8.5-10.1); CARBON DIOXIDE LEVEL 24 MMOL/L (20-31); CHLORIDE LEVEL 112 MMOL/L (98-107); CREATININE FOR GFR 0.76 MG/DL (0.55-1.30); GLOMERULAR FILTRATION RATE > 60.0 (>60); GLUCOSE, FASTING 81 MG/DL (60-100); POTASSIUM SERUM 4.2 MMOL/L (3.5-5.1); SALICYLATE LEVEL < 3.0 MG/DL (<30); SODIUM LEVEL 141 MMOL/L (136-145); TOTAL PROTEIN 6.7 G/DL (5.7-8.2)
[2024-05-04 12:49] LABS: FREE T4 1.11 NG/DL (0.89-1.76); THYROID STIMULATING HORMONE 2.608 uIU/ML (0.55-4.78)
[2024-05-04 12:55] LABS: AMPHETAMINES LEVEL URINE NEGATIVE (NEGATIVE); BARBITURATES URINE NEGATIVE (NEGATIVE); BENZODIAZEPINES URINE NEGATIVE (NEGATIVE); COCAINE METABOLITE URINE NEGATIVE (NEGATIVE); METHADONE URINE NEGATIVE (NEGATIVE); OPIATES URINE NEGATIVE (NEGATIVE); PHENCYCLIDINE URINE NEGATIVE (NEGATIVE)
[2024-05-04 12:56] LABS: CANNABINOIDS URINE NEGATIVE (NEGATIVE)
[2024-05-04 13:02] LABS: HCG, SERUM QUALITATIVE NEGATIVE (NEGATIVE)
[2024-05-04] MEDS ORDERED: MOM 30ML SUSPENSION UDC PO PRN (13:40)
[2024-05-04] MEDS ORDERED: MAALOX 30 ML SUSP *UDC PO PRN (13:40)
[2024-05-04] MEDS ORDERED: IBUPROFEN 400MG TAB PO PRN (13:40)
[2024-05-04] MEDS ORDERED: traZODone 50 MG TAB PO PRN (13:40)
[2024-05-04] MEDS ORDERED: ACETAMINOPHEN TAB 650MG DOSE (2X325MG) PO PRN (13:40)
[2024-05-04] MEDS ORDERED: NYST1POW9 TOP (13:41)
[2024-05-04] MEDS ORDERED: SUCR1TAB56 PO (13:41)
[2024-05-04] MEDS ORDERED: MIRT1TAB PO (13:41)
[2024-05-04] MEDS ORDERED: ARIP1TAB6 PO (13:41)
[2024-05-04] MEDS ORDERED: HOME MED LIST COMPLETE! XX SCH (13:45)
[2024-05-04 14:41] VITALS: BP 143/88; TEMP 97.9; O2SAT 100
[2024-05-05 06:24] VITALS: BP 128/63; TEMP 98.8; O2SAT 100
[2024-05-05] MEDS ORDERED: CETIRIZINE (ZyrTEC) 10 MG TAB PO PRN (11:40)
[2024-05-05] MEDS ORDERED: OMEPRAZOLE 20MG CAP PO PRN (11:40)
[2024-05-05] MEDS: SUCRALFATE 1 GM TAB PO SCH (12:15)
[2024-05-05] MEDS: CYANOCOBALAMIN 500 MCG TAB PO SCH (12:53)
[2024-05-05] MEDS: ATORVASTATIN 20 MG TAB PO SCH (12:53)
[2024-05-05] MEDS: FLUoxetine 20MG CAP PO SCH (12:55)
[2024-05-05] MEDS: amLODIPine 5 MG TAB PO SCH (12:57)
[2024-05-05] MEDS: LEVOTHYROXINE 88MCG TABLET (0.088 MG) PO SCH (14:46)
[2024-05-05] MEDS: SPIRONOLACTONE 50 MG TAB PO SCH (17:00)
[2024-05-05 17:35] VITALS: BP 125/80; TEMP 97.3; O2SAT 99
[2024-05-05] MEDS: diphenhydrAMINE 25MG CAP PO PRN (20:05)
[2024-05-05] MEDS: MIRTAZAPINE 7.5MG PER 1/2 TABLET PO SCH (20:05)
[2024-05-05] MEDS: PRAZOSIN 1 MG CAP PO SCH (20:06)
[2024-05-06 06:41] VITALS: BP_SYST 119; BP_SYST 133; BP_DIAS 56; BP_DIAS 71; TEMP 97.2; TEMP 97.7; O2SAT 100; O2SAT 97
[2024-05-06] MEDS: NALTREXONE 50 MG TAB PO SCH (09:41)
[2024-05-06 18:40] VITALS: BP 130/84; TEMP 97.1; O2SAT 99
[2024-05-07 05:57] VITALS: BP 119/63; TEMP 97.5; O2SAT 99
[2024-05-07 07:22] LABS: CHOLESTEROL RISK RATIO 3.47 (<5); HDL CHOLESTEROL 58.5 MG/DL (>40); LDL CHOLESTEROL 112.5 MG/DL (<100); NON-HDL-C 144.5 MG/DL
[2024-05-07 08:21] VITALS: BP 123/73
[2024-05-07] MEDS ORDERED: NALT50TA4 PO (08:44)
[2024-05-07] MEDS ORDERED: MIRT1TAB PO (08:44)
[2024-05-07] MEDS ORDERED: FLUO-365 PO (08:44)
[2024-05-07] MEDS ORDERED: ARIP1TAB6 PO (08:44)
[2024-05-07] MEDS ORDERED: PRAZ1CAP PO (08:44)
== END 2024-05-07 11:05 | disposition home or self-care (01) | DRG 753 ==
LOC: M ED 10:38 → M ED INP 13:37 → M PSY 14:31
PROVIDERS: ADMIT Psychiatry & Neurology Psychiatry; ATTEND Psychiatry & Neurology Psychiatry
DX: F39 Unspecified mood [affective] disorder (principal); R45.851 Suicidal ideations; L40.50 Arthropathic psoriasis, unspecified; E11.9 Type 2 diabetes mellitus without complications; E06.3 Autoimmune thyroiditis; I10 Essential (primary) hypertension; D64.9 Anemia, unspecified; F10.90 Alcohol use, unspecified, uncomplicated; F43.10 Post-traumatic stress disorder, unspecified; K21.9 Gastro-esophageal reflux disease without esophagitis; F17.200 Nicotine dependence, unspecified, uncomplicated; E78.00 Pure hypercholesterolemia, unspecified; K76.9 Liver disease, unspecified; N28.9 Disorder of kidney and ureter, unspecified; Z56.0 Unemployment, unspecified; Z79.890 Hormone replacement therapy; Z79.899 Other long term (current) drug therapy; Z88.1 Allergy status to other antibiotic agents; Z88.5 Allergy status to narcotic agent; Z88.8 Allergy status to other drugs, medicaments and biological substances; Z81.8 Family history of other mental and behavioral disorders

== ENCOUNTER → 2024-08-13 | Outpatient (REF) | payer MEDICAID, OTHER ==
[~2024-08-13] MED LIST changes: +ARIP1TAB6 PO; +MIRT1TAB PO; +NALT50TA4 PO; +NYST1POW3 TOP; +PRAZ1CAP PO; +SUCR1TAB56 PO
[2024-08-13 13:31] LABS: ALBUMIN 3.4 G/DL (3.2-5.2); ALKALINE PHOSPHATASE 75 U/L (35-104); ALT/SGPT 30 U/L (7.0-40); AST/SGOT 22 U/L (<34); BILIRUBIN,TOTAL 0.2 MG/DL (0.3-1.2); BLOOD UREA NITROGEN 10 MG/DL (9-23); CALCIUM LEVEL 9.4 MG/DL (8.5-10.1); CARBON DIOXIDE LEVEL 25 MMOL/L (20-31); CHLORIDE LEVEL 106 MMOL/L (98-107); CHOLESTEROL LEVEL 244 MG/DL (<200); CHOLESTEROL RISK RATIO 3.66 (<5); CREATININE FOR GFR 0.74 MG/DL (0.55-1.30); GLOMERULAR FILTRATION RATE > 60.0 (>60); GLUCOSE, FASTING 86 MG/DL (60-100); HDL CHOLESTEROL 66.5 MG/DL (>40); LDL CHOLESTEROL 140.7 MG/DL (<100); NON-HDL-C 177.5 MG/DL; POTASSIUM SERUM 4.5 MMOL/L (3.5-5.1); SODIUM LEVEL 140 MMOL/L (136-145); TOTAL PROTEIN 7.2 G/DL (5.7-8.2); TRIGLYCERIDES LEVEL 184 MG/DL (<150)
[2024-08-13 13:32] LABS: THYROID STIMULATING HORMONE 3.482 uIU/ML (0.55-4.78)
[2024-08-13 13:42] LABS: HEMOGLOBIN A1c 5.5 % (4.0-6.0)
== END ==
LOC: M LAB REF 12:26
PROVIDERS: ATTEND Family Medicine Addiction Medicine
DX: I10 Essential (primary) hypertension (principal); E03.9 Hypothyroidism, unspecified

== ENCOUNTER → 2024-12-31 | Outpatient (REF) | payer OTHER ==
[~2024-12-31] MED LIST changes: +DEUC6TAB PO; +MIRT-88 PO; +PANT20TA6 PO
[2024-12-31 18:11] LABS: ALBUMIN 3.7 G/DL (3.2-5.2); BILIRUBIN,TOTAL 0.3 MG/DL (0.3-1.2); CALCIUM LEVEL 8.7 MG/DL (8.5-10.1); CHOLESTEROL RISK RATIO 3.2 (<5); CREATININE FOR GFR 0.9 MG/DL (0.55-1.30); HDL CHOLESTEROL 72.4 MG/DL (>40); LDL CHOLESTEROL 125.8 MG/DL (<100); NON-HDL-C 159.6 MG/DL; POTASSIUM SERUM 4.4 MMOL/L (3.5-5.1); TOTAL PROTEIN 7.2 G/DL (5.7-8.2)
[2024-12-31 18:13] LABS: THYROID STIMULATING HORMONE 3.006 uIU/ML (0.55-4.78)
[2024-12-31 18:37] LABS: HEMOGLOBIN A1c 5.7 % (4.0-6.0)
== END ==
LOC: M LAB REF 17:05
PROVIDERS: ATTEND Family Medicine Addiction Medicine
DX: E11.9 Type 2 diabetes mellitus without complications (principal)

== ENCOUNTER → 2025-03-15 | Outpatient (REF) | payer OTHER, MEDICAID ==
[~2025-03-15] MED LIST changes: +PROZ20CA11 PO
== END ==
LOC: M SFHCLERA 14:37
PROVIDERS: ATTEND Nurse Practitioner Family
DX: L40.9 Psoriasis, unspecified (principal)

== ENCOUNTER 2025-03-22 07:48 | Day surgery (SDC) | payer OTHER ==
[~2025-03-22] VITALS: Ht 161.9 cm; Wt 79.9 kg
[~2025-03-22 07:48] MED LIST changes: -PROZ20CA11 PO; +PROZ20CA12 PO
[2025-03-22 10:16] VITALS: TEMP 97
[2025-03-22 10:28] VITALS: BP 138/65; O2SAT 100
[2025-03-22] MEDS ORDERED: LIDOCAINE 2% 100 MG/5 ML SDV (FOR ANES.) As Ordered ONE (10:31)
== END 2025-03-22 10:55 | disposition home or self-care (01) ==
LOC: M OPP 07:48
PROVIDERS: ATTEND Internal Medicine Gastroenterology
DX: R12 Heartburn (principal); Z98.84 Bariatric surgery status; G47.30 Sleep apnea, unspecified; Z88.1 Allergy status to other antibiotic agents; Z88.5 Allergy status to narcotic agent; Z88.8 Allergy status to other drugs, medicaments and biological substances; Z79.899 Other long term (current) drug therapy; F17.210 Nicotine dependence, cigarettes, uncomplicated

== ENCOUNTER → 2025-04-01 | Outpatient (REF) | payer OTHER, MEDICAID ==
[2025-04-01 13:50] LABS: ALT/SGPT 30 U/L (7.0-40); AST/SGOT 30 U/L (<34); CALCIUM LEVEL 9.2 MG/DL (8.5-10.1); CARBON DIOXIDE LEVEL 24 MMOL/L (20-31); CHLORIDE LEVEL 107 MMOL/L (98-107); CHOLESTEROL LEVEL 247 MG/DL (<200); CHOLESTEROL RISK RATIO 3.22 (<5); CREATININE FOR GFR 0.75 MG/DL (0.55-1.30); GLOMERULAR FILTRATION RATE > 90.0 (>60); LDL CHOLESTEROL 130.7 MG/DL (<100); NON-HDL-C 170.3 MG/DL; POTASSIUM SERUM 4.0 MMOL/L (3.5-5.1); SODIUM LEVEL 142 MMOL/L (136-145); TRIGLYCERIDES LEVEL 198 MG/DL (<150)
[2025-04-01 14:56] LABS: ESTIMATED AVERAGE GLUCOSE 114.0 MG/DL (60-110)
== END ==
LOC: M LAB REF 11:53
PROVIDERS: ATTEND Family Medicine Addiction Medicine
DX: E11.69 Type 2 diabetes mellitus with other specified complication (principal)